=== PATIENT | male | born 1950 | race Caucasian/White ===

== ENCOUNTER 2018-08-13 16:52 | Emergency (ER) | payer BC, OTHER ==
[~2018-08-13] VITALS: Ht 167.6 cm; Wt 75.0 kg
[2018-08-13] MEDS ORDERED: SODIUM CHLORIDE 0.9% 1,000 ML IV ONE (19:19)
[2018-08-13 19:50] LABS: CHLORIDE 107 mEq/L (98-107)
[2018-08-13 19:57] LABS: BASOPHILS % 0.6 % (0.0-2.0); EOSINOPHILS % 0.5 % (0.0-5.0); HEMATOCRIT. 43.4 % (42.0-52.0); HEMOGLOBIN. 14.3 g/dL (14.0-18.0); LYMPHOCYTES % 36.2 % (20.0-50.0); MEAN CORPUSCULAR HEMOGLOBIN 28.6 pg (28.0-32.0); MEAN CORPUSCULAR VOLUME 86.8 fL (80.0-94.0); MONOCYTES % 2.7 % (2.0-8.0); PLATELET 148 x1000/uL (130-400); RED CELL DISTRIBUTION WIDTH 17.4 % (11.6-14.6)
[2018-08-13 20:44] LABS: ETHANOL BLOOD 318 mg/dL
[2018-08-13 22:52] VITALS: BP 131/77
== END 2018-08-13 23:07 | disposition home or self-care (01) ==
LOC: ER 17:47
DX: G93.40 Encephalopathy, unspecified (principal); F10.10 Alcohol abuse, uncomplicated; E11.65 Type 2 diabetes mellitus with hyperglycemia; I11.0 Hypertensive heart disease with heart failure; I50.9 Heart failure, unspecified; R41.82 Altered mental status, unspecified
CPT/HCPCS: 36415; 70450; 71045; 80053; 80307; 80320; 80329; 82962; 85025; 93005; 96360; 96361; 99284; J7030; G0480